=== PATIENT | male | born 1975 | race Caucasian/White ===

== ENCOUNTER 2019-06-13 20:50 | Emergency (ER) | payer MEDICAID ==
[~2019-06-13] VITALS: Ht 177.8 cm; Wt 77.1 kg
[2019-06-13] MEDS ORDERED: TRAZODONE 150150 M1 PO (21:06)
[2019-06-13] MEDS ORDERED: PROZAC40 MG PO (21:06)
[2019-06-13] MEDS ORDERED: QUETIAPINE FUM100 MG PO (21:06)
[2019-06-13 21:41] LABS: URINE BILIRUBIN NEGATIVE (Negative); URINE BLOOD NEGATIVE (Negative); URINE CLARITY CLEAR; URINE COLOR YELLOW; URINE GLUCOSE-RANDOM NEGATIVE (Negative); URINE KETONES 2+ (Negative); URINE LEUKOCYTES NEGATIVE (Negative); URINE NITRITE NEGATIVE (Negative); URINE PROTEIN NEGATIVE (Negative); URINE SPECIFIC GRAVITY 1.025 (1.005-1.030)
[2019-06-13 21:47] LABS: AMP/METHAMP POSITIVE (Negative); BARBITURATES Negative (Negative); BENZODIAZEPINES POSITIVE (Negative); COCAINE Negative (Negative); METHADONE Negative (Negative); OPIATES Negative (Negative); PCP Negative (Negative); THC Negative (Negative)
[2019-06-13 21:59] LABS: HEMATOCRIT 33.7 % (42.0-52.0); HEMOGLOBIN 11.1 gm/dL (14.0-18.0); MCH 25.4 pg (26.0-34.0); MCHC 32.8 g/dL (28.0-37.0); MCV 77.4 fL (80.0-100.0); MPV 7.8 fl. (7.2-11.1); RBC 4.36 mil/uL (4.50-6.00); RDW-CV 19.5 % (10.5-14.5); WBC 5.5 thou/uL (4.0-11.0)
[2019-06-13 22:06] LABS: CALCIUM 8.3 mg/dL (8.5-10.1); CREATININE 0.8 mg/dL (0.6-1.3); POTASSIUM 3.5 mmol/L (3.5-5.1)
[2019-06-13 22:15] LABS: ALBUMIN 3.3 g/dL (3.4-5.0); TOTAL BILIRUBIN 0.6 mg/dL (<0.1-1.0); TOTAL PROTEIN 7.2 g/dL (6.4-8.2)
[2019-06-13 22:23] LABS: ALCOHOL 89 mg/dL (<10); SALICYLATE 2.9 mg/dL (2.8-20.0)
[2019-06-13 22:24] LABS: ACETAMINOPHEN < 2 ug/mL (10-30)
[2019-06-14 15:05] VITALS: BP 156/82
== END 2019-06-14 15:06 ==
LOC: M.ERS 20:50
PROVIDERS: Personal Emergency Response Attendant
DX: R45.851 Suicidal ideations (principal); F19.90 Other psychoactive substance use, unspecified, uncomplicated; Z79.899 Other long term (current) drug therapy